=== PATIENT | male | born 1945 | race Hispanic/Latino ===

== ENCOUNTER 2022-02-22 12:47 | Outpatient (CLI) | payer MEDICARE | END 2022-02-22 12:48 | disposition home or self-care (01) | LOC: BICCT 12:47 | PROVIDERS: ATTEND Internal Medicine | DX: R31.0 Gross hematuria (principal) | CPT/HCPCS: 74178; 82565 ==

== ENCOUNTER 2022-03-18 14:29 | Outpatient (CLI) | payer MEDICARE | END 2022-03-18 14:30 | disposition home or self-care (01) | LOC: SCSMRI 14:29 | PROVIDERS: ATTEND Internal Medicine | DX: M54.41 Lumbago with sciatica, right side (principal); M47.815 Spondylosis without myelopathy or radiculopathy, thoracolumbar region; M48.061 Spinal stenosis, lumbar region without neurogenic claudication; M47.816 Spondylosis without myelopathy or radiculopathy, lumbar region; M48.07 Spinal stenosis, lumbosacral region; M47.817 Spondylosis without myelopathy or radiculopathy, lumbosacral region | CPT/HCPCS: 72148 ==

== ENCOUNTER 2022-06-11 08:21 | Outpatient (CLI) | payer MEDICARE | END 2022-06-11 08:22 | disposition home or self-care (01) | LOC: BICRAD 08:21 | PROVIDERS: ATTEND Internal Medicine | DX: M62.838 Other muscle spasm (principal); M47.812 Spondylosis without myelopathy or radiculopathy, cervical region | CPT/HCPCS: 72040 ==

== ENCOUNTER 2022-07-19 09:04 | Outpatient (CLI) | payer MEDICARE | END 2022-07-19 09:05 | disposition home or self-care (01) | LOC: TBSIIMAG 09:04 | PROVIDERS: ATTEND Internal Medicine | DX: M47.22 Other spondylosis with radiculopathy, cervical region (principal); M54.2 Cervicalgia; M47.813 Spondylosis without myelopathy or radiculopathy, cervicothoracic region | CPT/HCPCS: 72141 ==